=== PATIENT | male | born 1985 | race Two or more races ===

== ENCOUNTER 2020-03-23 00:02 | Emergency (ER) | payer OTHER ==
[~2020-03-23] VITALS: Ht 177.8 cm; Wt 78.6 kg
[2020-03-23 00:05] VITALS: BP 114/49
== END 2020-03-23 01:30 | disposition left against medical advice (07) ==
LOC: EMS 00:02
DX: F41.9 Anxiety disorder, unspecified (principal); Z53.21 Procedure and treatment not carried out due to patient leaving prior to being seen by health care provider